=== PATIENT | female | born 1990 | race Caucasian/White ===

== ENCOUNTER → 2016-11-14 | Outpatient (CLI) | payer OTHER ==
[2015-05-12 08:26] VITALS: BP 133/81
[~2016-11-14] MED LIST: ARIP20TA8 PO; CYCL10TA2 PO; EXEN2VIA SQ; FLUO40CA9 PO; IBUP1TAB84 PO; LAMO200T3 PO; LINA5TAB4 PO; LISD70CA3 PO; OMEP40CA5 PO; PHEN37.599 PO
--- NOTE | 2016-11-14 08:44 | KCIC ---
PROCEDURE Lumbar spine MRI without contrast. HISTORY Back pain and right lower extremity radiculopathy. TECHNIQUE Multiplanar and multi sequence magnetic resonance imaging of the lumbar spine was performed without contrast. COMPARISON None. FINDINGS There is mild lumbar levoscoliosis. There is no significant listhesis. The vertebral bodies are normal in height and the disc spaces are preserved. The conus terminates at L1-L2. No suspicious osseous lesion is seen. There are small simple appearing cysts within both kidneys. At L5-S1, there is a shallow broad-based posterior central to right paracentral disc protrusion. There is minimal facet arthropathy. There is no stenosis. There is no significant stenosis at the remainder of the lumbar levels. IMPRESSION 1. L5-S1: Shallow broad-based posterior central to right paracentral disc protrusion and minimal facet arthropathy, without significant stenosis. 2. No additional significant degenerative change or significant stenosis within the remainder of the lumbar spine and no acute finding. Electronically signed by: Ying Christy (Nov 14, 2016 08:42:34)
== END | disposition home or self-care (01) ==
LOC: KCIC MRI 07:58
PROVIDERS: ATTEND Family Medicine
DX: M51.27 Other intervertebral disc displacement, lumbosacral region (principal)
CPT/HCPCS: 72148

== ENCOUNTER → 2018-10-17 | Outpatient (CLI) | payer OTHER ==
[2015-05-12 08:26] VITALS: BP 133/81
[~2018-10-17] MED LIST changes: +ARIP20TA5 PO; -ARIP20TA8 PO; +LINA5TAB PO; -LINA5TAB4 PO; -LISD70CA3 PO; +LISD70CA5 PO
--- NOTE | 2018-10-17 16:34 | RAD ---
Examination: MRI of the left knee without contrast HISTORY: History of left knee pain status post fall COMPARISON: None available Technique: Multiplanar, multisequence MR imaging of the left knee were performed with contrast FINDINGS: The anterior cruciate ligament, posterior cruciate ligament appear intact. The medial meniscus, lateral meniscus appear intact. The medial collateral ligament is intact. There is mild increased T2 signal identified about the proximal lateral collateral ligament fibers likely grade 1 sprain with increased T2 signal identified in the proximal MPFL and anteromedial capsular ligamentous structures. The lateral collateral ligamentous complex including the fibular collateral ligament, biceps femoris tendon, popliteus tendon appear intact. The extensor mechanism is intact. The medial retinaculum, lateral retinaculum appear intact. There is mild superficial fraying of cartilage identified lateral to the left facet with small subchondral cystic changes. There is mild lateral tilting of the patella with TG-TT distance measuring 19 mm. 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 Mild T2 signal identified in the soft tissue anterior to the patella likely secondary to soft tissue edema. IMPRESSION: 1. Mild increased T2 signal identified in the proximal medial collateral ligament likely grade 1 sprain with increased signal extending anteriorly to the medial patellofemoral ligament proximal and anteromedial capsular ligamentous structures likely secondary to injury/sprain. 2. 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 3. Grade I chondromalacia patella. Electronically signed by: Rafael Fabian MD (10/17/2018 4:31 PM) [id number]
== END | disposition home or self-care (01) ==
LOC: MRI 15:00
PROVIDERS: ATTEND Family Medicine
DX: M22.42 Chondromalacia patellae, left knee (principal); Q74.1 Congenital malformation of knee
CPT/HCPCS: 73721